=== PATIENT | female | born 2000 | race African-American/Black ===

== ENCOUNTER 2023-02-15 15:27 | Observation (INO) | payer MEDICAID, OTHER ==
[~2023-02-15] VITALS: Ht 157.5 cm; Wt 84.8 kg
[2023-02-15] MEDS ORDERED: PREN1TAB71 OR (15:51)
== END 2023-02-15 15:34 | disposition home or self-care (01) ==
LOC: LDRP 15:27
PROVIDERS: ADMIT Obstetrics & Gynecology; ATTEND Obstetrics & Gynecology
DX: O26.893 Other specified pregnancy related conditions, third trimester (principal); R10.2 Pelvic and perineal pain; O62.9 Abnormality of forces of labor, unspecified; Z3A.38 38 weeks gestation of pregnancy
CPT/HCPCS: 59025; 81002; 87081; 94760; G0378